=== PATIENT | male | born 1945 | race Caucasian/White ===

== ENCOUNTER 2020-02-26 11:05 | Inpatient (IN) | payer OTHER, MEDICAID ==
[~2020-02-26] VITALS: Ht 172.7 cm; Wt 125.2 kg
[~2020-02-26 11:05] MED LIST: ETOMIDATE 2MG/ML 10ML VIAL IV ONE; SUCCINYLCHOLINE CHLORIDE 200MG/10ML IV ONE
[2020-02-26] MEDS ORDERED: VANCOMYCIN 1 G PREMIX 200 ML IV ONE (11:15)
[2020-02-26] MEDS ORDERED: PROPOFOL 10MG/ML 100ML 100 ML IV ONE (11:15)
[2020-02-26] MEDS ORDERED: SODIUM CHLORIDE 0.9% 1,000 ML IV ONE ×2 (11:15)
[2020-02-26] MEDS ORDERED: ETOMIDATE 2MG/ML 10ML VIAL IV ONE (11:15)
[2020-02-26] MEDS ORDERED: PIPERACILLIN/TAZ 3.375G PREMIX 50 ML IV ONE (11:15)
[2020-02-26] MEDS ORDERED: SUCCINYLCHOLINE CHLORIDE 200MG/10ML IV ONE (11:15)
[2020-02-26 11:43] LABS: HEMATOCRIT. 37.8 % (42.0-52.0); HEMOGLOBIN. 12.9 g/dL (14.0-18.0); MEAN CORPUSCULAR HEMOGLOBIN 33.6 pg (28.0-32.0); MEAN CORPUSCULAR VOLUME 98.5 fL (80.0-94.0); MEAN PLATELET VOLUME 8.5 fl (7.4-10.4); PLATELET 279 x1000/uL (130-400); RED BLOOD CELL COUNT 3.84 mill/uL (4.7-6.1); RED CELL DISTRIBUTION WIDTH 14.9 % (11.6-14.6)
[2020-02-26 11:49] LABS: CHLORIDE 100 mEq/L (98-107)
[2020-02-26 11:51] LABS: INR 1.2
[2020-02-26 12:13] LABS: NUCLEATED RED BLOOD CELLS 1 /100 WBC; PLATELET ESTIMATE NORMAL
[2020-02-26] MEDS ORDERED: MIDAZOLAM HCL 2 MG/2 ML VIAL IV ONE (12:30)
[2020-02-26] MEDS ORDERED: NOREPINEPHRINE 32 MG in DEXT 5% WATER 218 ML IV PRN (12:45)
[2020-02-26] MEDS ORDERED: PROPOFOL 10MG/ML 100ML 100 ML IV SCH (13:45)
[2020-02-26 14:06] LABS: BG BASE EXCESS -4.9 mmol/L (-2.0-2.0); BG CARBOXYHEMOGLOBIN 1.1 % (0.5-1.5); BG DEOXYHEMOGLOBIN 7.5 % (0.0-5.0); BG FRACTION INSPIRED OXYGEN 100; BG METHEMOGLOBIN 0.2 % (0.0-1.5); BG OXYGEN SATURATION 92.4 % (92.0-98.5); BG OXYHEMOGLOBIN 91.2 % (94.0-97.0); BG PCO2 32.6 mmHg (35.0-45.0); BG PH 7.384 (7.350-7.450); BG PO2 69.2 mmHg (75.0-100.0); BG SAMPLE SITE RIGHT RADIAL; BG TOTAL HEMOGLOBIN 15.6 g/dL (12.0-18.0); BG VENT MODE VENT - PRVC
[2020-02-26 17:28] LABS: CLARITY URINE CLEAR (CLEAR); COLOR URINE YELLOW (YELLOW); KETONES URINE NEGATIVE (NEGATIVE); LEUKOCYTE ESTERASE URINE NEGATIVE (NEGATIVE); NITRITE URINE NEGATIVE (NEGATIVE); OCCULT BLOOD URINE 1+ (NEGATIVE); PH URINE 6.5 (4.5-8.0); PROTEIN URINE 2+ (NEGATIVE); SPECIFIC GRAVITY URINE 1.018 (1.005-1.030)
[2020-02-27] MEDS ORDERED: ACETAMINOPHEN 650MG SUPP PR PRN (06:00)
[2020-02-27] MEDS: DEXT 5%/0.45% NACL 1000ML 1,000 ML IV SCH (10:30)
[2020-02-27] MEDS ORDERED: DEXTROSE 50% WATER 50ML SYRINGE IV PRN (10:30)
[2020-02-27] MEDS ORDERED: ENOXAPARIN 30MG/0.3ML SYR SUBCUT SCH (11:00)
[2020-02-27] MEDS: PIPERACILLIN/TAZOBACTAM 3.375 G in DEXT 5% WATER 100 ML IV SCH ×2 (11:00→17:00)
[2020-02-27] MEDS: DEXAMETHASONE 10 MG/ML VIAL IV SCH (11:00)
[2020-02-27] MEDS ORDERED: FAMOTIDINE 20MG/2ML VIAL IV SCH (11:00)
[2020-02-27 11:24] LABS: BG BASE EXCESS 1.4 mmol/L (-2.0-2.0); BG CARBOXYHEMOGLOBIN 0.4 % (0.5-1.5); BG HCO3 ACT 29.7 mmol/L (22.0-26.0); BG METHEMOGLOBIN 0.2 % (0.0-1.5); BG OXYHEMOGLOBIN 92.4 % (94.0-97.0); BG PCO2 62.6 mmHg (35.0-45.0); BG PH 7.294 (7.350-7.450); BG PO2 70.3 mmHg (75.0-100.0); BG SAMPLE SITE RIGHT BRACHIAL; BG VENT MODE VENT- PRVC
[2020-02-27] MEDS: BLOOD SUGAR DIAGNOSTIC STRIP TEST SCH ×3 (11:30→22:27)
[2020-02-27] MEDS ORDERED: INSULIN LISPRO 100 UNITS/ML SUBCUT SCH (12:00)
[2020-02-27] MEDS: VANCOMYCIN 1250MG in DEXTROSE 5% WATER 250ML IV SCH (12:00)
[2020-02-27 14:07] LABS: BG BASE EXCESS 0.1 mmol/L (-2.0-2.0); BG CARBOXYHEMOGLOBIN 0.3 % (0.5-1.5); BG HCO3 ACT 27.3 mmol/L (22.0-26.0); BG METHEMOGLOBIN 0.2 % (0.0-1.5); BG OXYHEMOGLOBIN 93.5 % (94.0-97.0); BG PCO2 54.9 mmHg (35.0-45.0); BG PH 7.315 (7.350-7.450); BG PO2 74.9 mmHg (75.0-100.0); BG SAMPLE SITE RIGHT BRACHIAL; BG TOTAL HEMOGLOBIN 14.7 g/dL (12.0-18.0); BG VENT MODE VENT- PRVC
[2020-02-27] MEDS: PANTOPRAZOLE SODIUM 40 MG/VIAL IV SCH ×2 (14:30→22:27)
[2020-02-27] MEDS ORDERED: PROPOFOL 10MG/ML 100ML 100 ML IV PRN (14:45)
[2020-02-27] MEDS ORDERED: ONDANSETRON HCL 4MG/2ML INJ IV PRN (14:45)
[2020-02-27] MEDS ORDERED: MORPHINE SULFATE 2 MG/ML CPJ (NOT FOR IM USE) IV PRN (14:45)
[2020-02-27] MEDS: SUCRALFATE 1G TABLET NG SCH (16:30)
[2020-02-27 16:48] LABS: HEMATOCRIT. 40.4 % (42.0-52.0); HEMOGLOBIN. 13.5 g/dL (14.0-18.0); MEAN CORPUSCULAR HEMOGLOBIN 33.4 pg (28.0-32.0); MEAN PLATELET VOLUME 9.5 fl (7.4-10.4); PLATELET 167 x1000/uL (130-400); RED BLOOD CELL COUNT 4.04 mill/uL (4.7-6.1); RED CELL DISTRIBUTION WIDTH 15.2 % (11.6-14.6)
[2020-02-27 16:52] LABS: CHLORIDE 106 mEq/L (98-107)
[2020-02-27] MEDS: INSULIN LISPRO 100 UNITS/ML SUBCUT SCH ×2 (17:00→22:27)
[2020-02-27 17:34] LABS: PLATELET ESTIMATE NORMAL
[2020-02-28] MEDS: SUCRALFATE 1G TABLET NG SCH ×5 (02:08→21:00)
[2020-02-28] MEDS: DEXT 5%/0.45% NACL 1000ML 1,000 ML IV SCH ×2 (03:52→19:50)
[2020-02-28] MEDS: PIPERACILLIN/TAZOBACTAM 3.375 G in DEXT 5% WATER 100 ML IV SCH ×6 (04:44→23:00)
[2020-02-28] MEDS: VANCOMYCIN 1250MG in DEXTROSE 5% WATER 250ML IV SCH (06:03)
[2020-02-28 06:22] LABS: HEMATOCRIT. 38.4 % (42.0-52.0); MEAN CORPUSCULAR HEMOGLOBIN 33.6 pg (28.0-32.0); MEAN CORPUSCULAR VOLUME 99.7 fL (80.0-94.0); MEAN PLATELET VOLUME 10.1 fl (7.4-10.4); PLATELET 166 x1000/uL (130-400); RED BLOOD CELL COUNT 3.86 mill/uL (4.7-6.1); RED CELL DISTRIBUTION WIDTH 15.3 % (11.6-14.6)
[2020-02-28 06:26] LABS: CHLORIDE 107 mEq/L (98-107)
[2020-02-28 06:31] LABS: TOTAL IRON BINDING CAPACITY 158 ug/dL (250-450)
[2020-02-28] MEDS: BLOOD SUGAR DIAGNOSTIC STRIP TEST SCH ×4 (06:40→21:00)
[2020-02-28] MEDS: INSULIN LISPRO 100 UNITS/ML SUBCUT SCH ×6 (06:43→23:12)
[2020-02-28 07:44] LABS: FOLIC ACID (FOLATE) SERUM 14.4 ng/mL (>5.38)
[2020-02-28] MEDS: PANTOPRAZOLE SODIUM 40 MG/VIAL IV SCH ×2 (09:54→23:00)
[2020-02-28] MEDS: DEXAMETHASONE 10 MG/ML VIAL IV SCH (10:41)
[2020-02-28 10:42] LABS: BG BASE EXCESS 5.1 mmol/L (-2.0-2.0); BG CARBOXYHEMOGLOBIN 0.4 % (0.5-1.5); BG DEOXYHEMOGLOBIN 5.6 % (0.0-5.0); BG FRACTION INSPIRED OXYGEN 100; BG METHEMOGLOBIN 0.3 % (0.0-1.5); BG OXYGEN SATURATION 94.4 % (92.0-98.5); BG OXYHEMOGLOBIN 93.7 % (94.0-97.0); BG PCO2 50.2 mmHg (35.0-45.0); BG PH 7.408 (7.350-7.450); BG PO2 73.2 mmHg (75.0-100.0); BG SAMPLE SITE LEFT RADIAL; BG TOTAL HEMOGLOBIN 14.1 g/dL (12.0-18.0); BG TOTAL RESPIRATORY RATE 28 b/min; BG VENT MODE VENT - AC
[2020-02-28] MEDS: IPRATROPIUM/ALBUTEROL 0.5-3(2.5)MG/3ML NEB HHN SCH ×3 (11:00→18:00)
[2020-02-28 11:28] LABS: NUCLEATED RED BLOOD CELLS 1 /100 WBC
[2020-02-28 11:29] LABS: PLATELET ESTIMATE NORMAL
[2020-02-28] MEDS: INSULIN GLARGINE UD 100 UNITS/ML SYR SUBCUT NR ×2 (18:57→18:59)
[2020-02-28] MEDS: PROPOFOL 10MG/ML 100ML 100 ML IV PRN ×2 (20:15→23:32)
[2020-02-29] MEDS: INSULIN GLARGINE UD 100 UNITS/ML SYR SUBCUT SCH ×3 (00:25→22:21)
[2020-02-29] MEDS: VANCOMYCIN 1250MG in DEXTROSE 5% WATER 250ML IV SCH (02:00)
[2020-02-29] MEDS ORDERED: IOHEXOL-350 100 ML BOTTLE ONE (06:00)
[2020-02-29 06:31] LABS: HEMATOCRIT. 37.7 % (42.0-52.0); HEMOGLOBIN. 12.4 g/dL (14.0-18.0); MEAN CORPUSCULAR HEMOGLOBIN 32.8 pg (28.0-32.0); MEAN CORPUSCULAR VOLUME 99.5 fL (80.0-94.0); MEAN PLATELET VOLUME 10.1 fl (7.4-10.4); PLATELET 170 x1000/uL (130-400); RED BLOOD CELL COUNT 3.79 mill/uL (4.7-6.1); RED CELL DISTRIBUTION WIDTH 14.9 % (11.6-14.6)
[2020-02-29 06:43] LABS: CHLORIDE 107 mEq/L (98-107)
[2020-02-29] MEDS: PIPERACILLIN/TAZOBACTAM 3.375 G in DEXT 5% WATER 100 ML IV SCH ×3 (08:00→17:00)
[2020-02-29] MEDS: IPRATROPIUM/ALBUTEROL 0.5-3(2.5)MG/3ML NEB HHN SCH ×2 (08:22→20:44)
[2020-02-29 08:23] LABS: PLATELET ESTIMATE NORMAL
[2020-02-29] MEDS: BLOOD SUGAR DIAGNOSTIC STRIP TEST SCH ×4 (08:23→21:50)
[2020-02-29 09:46] LABS: BG BASE EXCESS 3.3 mmol/L (-2.0-2.0); BG FRACTION INSPIRED OXYGEN 100; BG HCO3 ACT 28.6 mmol/L (22.0-26.0); BG PCO2 45.7 mmHg (35.0-45.0); BG PH 7.414 (7.350-7.450); BG PO2 129.9 mmHg (75.0-100.0); BG SAMPLE SITE RIGHT RADIAL; BG TOTAL RESPIRATORY RATE 28 b/min; BG VENT MODE VENT- PRVC
[2020-02-29] MEDS: INSULIN LISPRO 100 UNITS/ML SUBCUT SCH ×4 (10:00→22:00)
[2020-02-29] MEDS: PANTOPRAZOLE SODIUM 40 MG/VIAL IV SCH ×2 (10:00→21:00)
[2020-02-29] MEDS: DEXAMETHASONE 10 MG/ML VIAL IV SCH (10:00)
[2020-02-29] MEDS: SUCRALFATE 1G TABLET NG SCH ×4 (11:09→22:20)
[2020-02-29] MEDS: ENOXAPARIN 100MG/ML SYR SUBCUT SCH ×2 (11:30→23:30)
[2020-02-29] MEDS ORDERED: PROPOFOL 10MG/ML 100ML 100 ML IV SCH (11:30)
[2020-02-29] MEDS: DEXT 5%/0.45% NACL 1000ML 1,000 ML IV SCH (15:58)
[2020-02-29] MEDS: VANCOMYCIN 1 G PREMIX 200 ML IV SCH (18:02)
[2020-03-01] MEDS: IPRATROPIUM/ALBUTEROL 0.5-3(2.5)MG/3ML NEB HHN SCH ×4 (02:50→20:31)
[2020-03-01] MEDS: DEXT 5%/0.45% NACL 1000ML 1,000 ML IV SCH ×2 (05:10→21:50)
[2020-03-01] MEDS: VANCOMYCIN 1 G PREMIX 200 ML IV SCH ×2 (06:16→18:24)
[2020-03-01 06:41] LABS: PROTHROMBIN TIME 10.9 sec (9.6-11.0)
[2020-03-01 06:42] LABS: BASOPHILS % 0.4 % (0.0-2.0); CHLORIDE 107 mEq/L (98-107); HEMATOCRIT. 36.5 % (42.0-52.0); HEMOGLOBIN. 12.1 g/dL (14.0-18.0); LYMPHOCYTES % 2.9 % (20.0-50.0); MEAN CORPUSCULAR HEMOGLOBIN 33.6 pg (28.0-32.0); MEAN CORPUSCULAR VOLUME 101.2 fL (80.0-94.0); MONOCYTES % 4.9 % (2.0-8.0); NEUTROPHILS % 91.8 % (40.0-76.0); PLATELET 132 x1000/uL (130-400); RED BLOOD CELL COUNT 3.61 mill/uL (4.7-6.1)
[2020-03-01] MEDS: BLOOD SUGAR DIAGNOSTIC STRIP TEST SCH ×4 (08:12→21:00)
[2020-03-01] MEDS: INSULIN LISPRO 100 UNITS/ML SUBCUT SCH ×4 (08:20→21:00)
[2020-03-01] MEDS: PANTOPRAZOLE SODIUM 40 MG/VIAL IV SCH ×2 (09:44→21:00)
[2020-03-01] MEDS: SUCRALFATE 1G TABLET NG SCH ×4 (09:45→22:00)
[2020-03-01] MEDS: INSULIN GLARGINE UD 100 UNITS/ML SYR SUBCUT SCH ×2 (11:01→22:00)
[2020-03-01 11:57] LABS: BG BASE EXCESS 2.4 mmol/L (-2.0-2.0); BG CARBOXYHEMOGLOBIN 0.1 % (0.5-1.5); BG DEOXYHEMOGLOBIN 2.5 % (0.0-5.0); BG METHEMOGLOBIN 0.1 % (0.0-1.5); BG OXYGEN SATURATION 97.5 % (92.0-98.5); BG OXYHEMOGLOBIN 97.3 % (94.0-97.0); BG PCO2 75.6 mmHg (35.0-45.0); BG PH 7.244 (7.350-7.450); BG PO2 113.7 mmHg (75.0-100.0); BG SAMPLE SITE RIGHT RADIAL; BG TOTAL HEMOGLOBIN 13.3 g/dL (12.0-18.0); BG VENT MODE VENT- PRVC
[2020-03-01] MEDS: DEXAMETHASONE 10 MG/ML VIAL IV SCH (12:09)
[2020-03-01] MEDS ORDERED: FENTANYL CITRATE/PF 2,500 MCG in SODIUM CHLORIDE 0.9% 200 ML IV PRN (12:15)
[2020-03-01] MEDS ORDERED: MIDAZOLAM HCL 100 MG in DEXT 5% WATER 80 ML IV PRN (12:15)
[2020-03-01] MEDS: ENOXAPARIN 100MG/ML SYR SUBCUT SCH ×2 (13:00→23:30)
[2020-03-01 15:14] LABS: BG BASE EXCESS 2.4 mmol/L (-2.0-2.0); BG CARBOXYHEMOGLOBIN 0.7 % (0.5-1.5); BG DEOXYHEMOGLOBIN 2.4 % (0.0-5.0); BG HCO3 ACT 30.8 mmol/L (22.0-26.0); BG METHEMOGLOBIN 0.3 % (0.0-1.5); BG OXYGEN SATURATION 97.6 % (92.0-98.5); BG OXYHEMOGLOBIN 96.6 % (94.0-97.0); BG PCO2 63.4 mmHg (35.0-45.0); BG PH 7.304 (7.350-7.450); BG PO2 102.9 mmHg (75.0-100.0); BG SAMPLE SITE RIGHT RADIAL; BG TOTAL HEMOGLOBIN 15.5 g/dL (12.0-18.0); BG VENT MODE VENT- PRVC
[2020-03-01] MEDS: PIPERACILLIN/TAZOBACTAM 3.375 G in DEXT 5% WATER 100 ML IV SCH ×3 (17:39→23:08)
[2020-03-02] MEDS: IPRATROPIUM/ALBUTEROL 0.5-3(2.5)MG/3ML NEB HHN SCH ×3 (00:51→14:46)
[2020-03-02 04:31] LABS: HEMATOCRIT. 39.3 % (42.0-52.0); MEAN CORPUSCULAR HEMOGLOBIN 33.6 pg (28.0-32.0); MEAN CORPUSCULAR VOLUME 101.2 fL (80.0-94.0); MEAN PLATELET VOLUME 10.2 fl (7.4-10.4); PLATELET 159 x1000/uL (130-400); RED BLOOD CELL COUNT 3.88 mill/uL (4.7-6.1); RED CELL DISTRIBUTION WIDTH 14.5 % (11.6-14.6)
[2020-03-02 04:55] LABS: VANCOMYCIN TROUGH 25.8 ug/mL (5.0-10.0)
[2020-03-02] MEDS: PIPERACILLIN/TAZOBACTAM 3.375 G in DEXT 5% WATER 100 ML IV SCH ×2 (05:30→15:18)
[2020-03-02] MEDS: SUCRALFATE 1G TABLET NG SCH ×3 (06:37→21:00)
[2020-03-02] MEDS: BLOOD SUGAR DIAGNOSTIC STRIP TEST SCH ×3 (06:53→18:17)
[2020-03-02] MEDS: VANCOMYCIN 1 G PREMIX 200 ML IV SCH (06:57)
[2020-03-02 09:11] LABS: BG BASE EXCESS -0.3 mmol/L (-2.0-2.0); BG CARBOXYHEMOGLOBIN 0.2 % (0.5-1.5); BG DEOXYHEMOGLOBIN 3.4 % (0.0-5.0); BG FRACTION INSPIRED OXYGEN 80; BG HCO3 ACT 27.1 mmol/L (22.0-26.0); BG METHEMOGLOBIN 0.3 % (0.0-1.5); BG OXYGEN SATURATION 96.6 % (92.0-98.5); BG OXYHEMOGLOBIN 96.1 % (94.0-97.0); BG PCO2 56.7 mmHg (35.0-45.0); BG PH 7.297 (7.350-7.450); BG PO2 93.3 mmHg (75.0-100.0); BG SAMPLE SITE LEFT RADIAL; BG TOTAL HEMOGLOBIN 12.9 g/dL (12.0-18.0); BG TOTAL RESPIRATORY RATE 35 b/min; BG VENT MODE PRVC
[2020-03-02] MEDS ORDERED: SODIUM POLYSTYRENE SULFONATE 15 G/60 ML BOT PO NR (09:45)
[2020-03-02] MEDS: PANTOPRAZOLE SODIUM 40 MG/VIAL IV SCH (10:03)
[2020-03-02] MEDS: INSULIN LISPRO 100 UNITS/ML SUBCUT SCH ×3 (10:03→19:04)
[2020-03-02] MEDS: DEXAMETHASONE 10 MG/ML VIAL IV SCH (11:33)
[2020-03-02] MEDS: INSULIN GLARGINE UD 100 UNITS/ML SYR SUBCUT SCH (11:33)
[2020-03-02] MEDS: ENOXAPARIN 100MG/ML SYR SUBCUT SCH (15:18)
[2020-03-02 15:26] LABS: PLATELET ESTIMATE NORMAL
[2020-03-02] MEDS: DEXT 5%/0.45% NACL 1000ML 1,000 ML IV SCH (15:48)
[2020-03-02] MEDS: METOCLOPRAMIDE HCL 10MG/2ML VIAL IV SCH (19:04)
[2020-03-03] MEDS: PIPERACILLIN/TAZOBACTAM 3.375 G in DEXT 5% WATER 100 ML IV SCH ×3 (01:06→09:31)
[2020-03-03] MEDS: INSULIN LISPRO 100 UNITS/ML SUBCUT SCH ×5 (01:07→21:00)
[2020-03-03] MEDS: PANTOPRAZOLE SODIUM 40 MG/VIAL IV SCH ×3 (01:07→22:42)
[2020-03-03] MEDS: BLOOD SUGAR DIAGNOSTIC STRIP TEST SCH ×5 (01:08→21:00)
[2020-03-03] MEDS: METOCLOPRAMIDE HCL 10MG/2ML VIAL IV SCH ×4 (01:08→17:14)
[2020-03-03] MEDS: ENOXAPARIN 100MG/ML SYR SUBCUT SCH ×2 (01:15→10:11)
[2020-03-03] MEDS: IPRATROPIUM/ALBUTEROL 0.5-3(2.5)MG/3ML NEB HHN SCH ×3 (01:53→20:19)
[2020-03-03] MEDS: INSULIN GLARGINE UD 100 UNITS/ML SYR SUBCUT SCH ×3 (02:51→22:42)
[2020-03-03] MEDS: SUCRALFATE 1G TABLET NG SCH ×5 (06:30→23:07)
[2020-03-03] MEDS: DEXAMETHASONE 4MG/ML 1ML VIAL IV SCH (08:53)
[2020-03-03] MEDS: DEXT 5%/0.45% NACL 1000ML 1,000 ML IV SCH ×2 (08:53→23:50)
[2020-03-03] MEDS ORDERED: DEXTROSE 50% WATER 50ML SYRINGE IV NR ×2 (10:30→13:00)
[2020-03-03] MEDS ORDERED: SODIUM BICARBONATE 8.4% 1 MEQ/ML 50ML SYR IV NR ×2 (10:30→13:00)
[2020-03-03] MEDS ORDERED: SODIUM POLYSTYRENE SULFONATE 15 G/60 ML BOT PO NR ×2 (10:30→15:00)
[2020-03-03] MEDS ORDERED: CALCIUM CHLORIDE 1GM/10ML SYR IV ONE (10:30)
[2020-03-03] MEDS ORDERED: INSULIN REGULAR (HUMULIN R) 300UNITS/3ML VIAL IV NR ×2 (10:30→13:00)
[2020-03-03 10:52] LABS: BG BASE EXCESS -5.4 mmol/L (-2.0-2.0); BG CARBOXYHEMOGLOBIN 0.3 % (0.5-1.5); BG DEOXYHEMOGLOBIN 1.3 % (0.0-5.0); BG FRACTION INSPIRED OXYGEN 100; BG HCO3 ACT 19.1 mmol/L (22.0-26.0); BG METHEMOGLOBIN 0.3 % (0.0-1.5); BG OXYGEN SATURATION 98.7 % (92.0-98.5); BG OXYHEMOGLOBIN 98.1 % (94.0-97.0); BG PCO2 33.6 mmHg (35.0-45.0); BG PH 7.372 (7.350-7.450); BG PO2 143.6 mmHg (75.0-100.0); BG SAMPLE SITE RIGHT RADIAL; BG TOTAL HEMOGLOBIN 10.8 g/dL (12.0-18.0); BG VENT MODE VENT - AC
[2020-03-03] MEDS ORDERED: CALCIUM CHLORIDE 1000 MG in DEXTROSE 5% WATER 100 ML IV SCH (11:00)
[2020-03-03 12:54] LABS: HEMATOCRIT. 37.8 % (42.0-52.0); HEMOGLOBIN. 12.3 g/dL (14.0-18.0); MEAN CORPUSCULAR HEMOGLOBIN 33.1 pg (28.0-32.0); MEAN CORPUSCULAR VOLUME 102.1 fL (80.0-94.0); MEAN PLATELET VOLUME 10.4 fl (7.4-10.4); PLATELET 178 x1000/uL (130-400); RED CELL DISTRIBUTION WIDTH 15.2 % (11.6-14.6)
[2020-03-03] MEDS ORDERED: HEPARIN 1000 UNITS/ML 10ML ONE (13:35)
[2020-03-03] MEDS ORDERED: CALCIUM CHLORIDE 1,000 MG in DEXT 5% WATER 90 ML IV NR (14:00)
[2020-03-03 15:56] LABS: ATYPICAL LYMPHOCYTES 1; NUCLEATED RED BLOOD CELLS 1 /100 WBC
[2020-03-03 15:57] LABS: PLATELET ESTIMATE NORMAL
[2020-03-03] MEDS: PIPERACILLIN/TAZOBACTAM 2.25 G in DEXTROSE 5% WATER 50 ML IV SCH (17:14)
[2020-03-04] MEDS: PIPERACILLIN/TAZOBACTAM 2.25 G in DEXTROSE 5% WATER 50 ML IV SCH ×3 (02:00→18:55)
[2020-03-04] MEDS: IPRATROPIUM/ALBUTEROL 0.5-3(2.5)MG/3ML NEB HHN SCH ×3 (02:57→20:50)
[2020-03-04 05:08] LABS: HEMATOCRIT 37.7 % (42.0-52.0); HEMOGLOBIN 12.8 g/dL (14.0-18.0); MEAN CORPUSCULAR HEMOGLOBIN 33.9 pg (28.0-32.0); MEAN CORPUSCULAR VOLUME 100.1 fL (80.0-94.0); PLATELET 193 x1000/uL (130-400); RED BLOOD CELL COUNT 3.76 mill/uL (4.7-6.1)
[2020-03-04] MEDS: METOCLOPRAMIDE HCL 10MG/2ML VIAL IV SCH ×4 (06:00→18:07)
[2020-03-04] MEDS: SUCRALFATE 1G TABLET NG SCH ×4 (06:30→22:07)
[2020-03-04] MEDS: BLOOD SUGAR DIAGNOSTIC STRIP TEST SCH ×4 (06:30→21:45)
[2020-03-04] MEDS: INSULIN LISPRO 100 UNITS/ML SUBCUT SCH ×4 (07:00→21:58)
[2020-03-04] MEDS: PANTOPRAZOLE SODIUM 40 MG/VIAL IV SCH ×2 (09:00→21:57)
[2020-03-04] MEDS: DEXAMETHASONE 4MG/ML 1ML VIAL IV SCH (09:00)
[2020-03-04 09:46] LABS: BG BASE EXCESS -6.2 mmol/L (-2.0-2.0); BG CARBOXYHEMOGLOBIN 0.6 % (0.5-1.5); BG FRACTION INSPIRED OXYGEN 80; BG METHEMOGLOBIN 0.1 % (0.0-1.5); BG OXYHEMOGLOBIN 96.3 % (94.0-97.0); BG PCO2 48.4 mmHg (35.0-45.0); BG PH 7.255 (7.350-7.450); BG SAMPLE SITE LEFT RADIAL; BG TOTAL HEMOGLOBIN 13.2 g/dL (12.0-18.0); BG TOTAL RESPIRATORY RATE 32 b/min; BG VENT MODE VENT- PRVC
[2020-03-04] MEDS ORDERED: ENOXAPARIN 100MG/ML SYR SUBCUT SCH (10:00)
[2020-03-04] MEDS: INSULIN GLARGINE UD 100 UNITS/ML SYR SUBCUT SCH ×2 (10:00→21:58)
[2020-03-04] MEDS ORDERED: SODIUM POLYSTYRENE SULFONATE 15 G/60 ML BOT NG NR (13:30)
[2020-03-04] MEDS: DEXT 5%/0.45% NACL 1000ML 1,000 ML IV SCH (16:30)
[2020-03-05] MEDS: METOCLOPRAMIDE HCL 10MG/2ML VIAL IV SCH ×4 (00:17→18:40)
[2020-03-05] MEDS: PIPERACILLIN/TAZOBACTAM 2.25 G in DEXTROSE 5% WATER 50 ML IV SCH ×3 (02:09→18:00)
[2020-03-05] MEDS: IPRATROPIUM/ALBUTEROL 0.5-3(2.5)MG/3ML NEB HHN SCH ×4 (02:56→20:38)
[2020-03-05] MEDS: INSULIN LISPRO 100 UNITS/ML SUBCUT SCH ×4 (06:18→21:43)
[2020-03-05] MEDS: BLOOD SUGAR DIAGNOSTIC STRIP TEST SCH ×4 (06:18→21:39)
[2020-03-05] MEDS: SUCRALFATE 1G TABLET NG SCH ×4 (06:30→21:43)
[2020-03-05 07:50] LABS: HEMATOCRIT 38.5 % (42.0-52.0); HEMOGLOBIN 12.7 g/dL (14.0-18.0); MEAN CORPUSCULAR HEMOGLOBIN 33.2 pg (28.0-32.0); MEAN CORPUSCULAR VOLUME 100.7 fL (80.0-94.0); PLATELET 183 x1000/uL (130-400); RED BLOOD CELL COUNT 3.83 mill/uL (4.7-6.1); RED CELL DISTRIBUTION WIDTH 15.2 % (11.6-14.6)
[2020-03-05 08:23] LABS: BG BASE EXCESS -6.5 mmol/L (-2.0-2.0); BG CARBOXYHEMOGLOBIN 0.3 % (0.5-1.5); BG HCO3 ACT 21.2 mmol/L (22.0-26.0); BG METHEMOGLOBIN 0.3 % (0.0-1.5); BG OXYHEMOGLOBIN 96.4 % (94.0-97.0); BG PCO2 51.3 mmHg (35.0-45.0); BG PH 7.234 (7.350-7.450); BG PO2 102.2 mmHg (75.0-100.0); BG SAMPLE SITE RIGHT RADIAL; BG TOTAL HEMOGLOBIN 13.3 g/dL (12.0-18.0); BG VENT MODE VENT- PRVC
[2020-03-05] MEDS: PANTOPRAZOLE SODIUM 40 MG/VIAL IV SCH ×2 (09:00→21:43)
[2020-03-05] MEDS: ENOXAPARIN 100MG/ML SYR SUBCUT SCH (09:00)
[2020-03-05] MEDS: DEXAMETHASONE 4MG/ML 1ML VIAL IV SCH (09:00)
[2020-03-05] MEDS ORDERED: INSULIN REGULAR (HUMULIN R) 300UNITS/3ML VIAL IV NR (10:00)
[2020-03-05] MEDS ORDERED: DEXTROSE 50% WATER 50ML SYRINGE IV NR (10:00)
[2020-03-05] MEDS ORDERED: SODIUM BICARBONATE 8.4% 1 MEQ/ML 50ML SYR IV NR (10:00)
[2020-03-05] MEDS ORDERED: CALCIUM GLUCONATE 100MG/ML 10ML VIAL IV NR (10:30)
[2020-03-05] MEDS ORDERED: SODIUM POLYSTYRENE SULFONATE 15 G/60 ML BOT PO NR (11:00)
[2020-03-05] MEDS ORDERED: SODIUM BICARBONATE 100 MEQ in DEXT 5%/0.45% NACL 1000ML 1,000 ML IV SCH (11:00)
[2020-03-06] VITALS (34 sets, daily range): BP systolic 102–165; BP diastolic 45–132
[2020-03-06] MEDS: METOCLOPRAMIDE HCL 10MG/2ML VIAL IV SCH ×5 (00:13→23:13)
[2020-03-06] MEDS: IPRATROPIUM/ALBUTEROL 0.5-3(2.5)MG/3ML NEB HHN SCH ×4 (02:26→20:26)
[2020-03-06] MEDS: PIPERACILLIN/TAZOBACTAM 2.25 G in DEXTROSE 5% WATER 50 ML IV SCH ×3 (03:23→21:45)
[2020-03-06 05:56] LABS: HEMATOCRIT 39.7 % (42.0-52.0); HEMOGLOBIN 13.3 g/dL (14.0-18.0); MEAN CORPUSCULAR HEMOGLOBIN 33.5 pg (28.0-32.0); PLATELET 205 x1000/uL (130-400); RED BLOOD CELL COUNT 3.97 mill/uL (4.7-6.1); RED CELL DISTRIBUTION WIDTH 15.5 % (11.6-14.6)
[2020-03-06] MEDS: BLOOD SUGAR DIAGNOSTIC STRIP TEST SCH ×4 (07:00→21:00)
[2020-03-06] MEDS: INSULIN LISPRO 100 UNITS/ML SUBCUT SCH ×4 (08:43→23:08)
[2020-03-06 09:11] LABS: BG CARBOXYHEMOGLOBIN 0.7 % (0.5-1.5); BG DEOXYHEMOGLOBIN 9.3 % (0.0-5.0); BG FRACTION INSPIRED OXYGEN 80; BG HCO3 ACT 20.8 mmol/L (22.0-26.0); BG METHEMOGLOBIN 0.3 % (0.0-1.5); BG OXYGEN SATURATION 90.6 % (92.0-98.5); BG OXYHEMOGLOBIN 89.7 % (94.0-97.0); BG PCO2 62.9 mmHg (35.0-45.0); BG PH 7.137 (7.350-7.450); BG PO2 71.2 mmHg (75.0-100.0); BG SAMPLE SITE RIGHT RADIAL; BG TOTAL HEMOGLOBIN 13.4 g/dL (12.0-18.0); BG VENT MODE VENT - PRVC
[2020-03-06] MEDS ORDERED: INSULIN REGULAR (HUMULIN R) 300UNITS/3ML VIAL IV ONE (09:45)
[2020-03-06] MEDS ORDERED: SODIUM BICARBONATE 8.4% 1 MEQ/ML 50ML SYR IV ONE (09:45)
[2020-03-06] MEDS ORDERED: DEXTROSE 50% WATER 50ML SYRINGE IV ONE (09:45)
[2020-03-06] MEDS ORDERED: CALCIUM GLUCONATE 1GM PREMIX 50 ML IV ONE (10:00)
[2020-03-06] MEDS ORDERED: SODIUM POLYSTYRENE SULFONATE 15 G/60 ML BOT PO NR (10:30)
[2020-03-06] MEDS: DEXAMETHASONE 4MG/ML 1ML VIAL IV SCH (11:05)
[2020-03-06] MEDS ORDERED: SODIUM BICARBONATE 8.4% MEQ/ML 50ML VIAL IV ONE ×2 (11:05→11:06)
[2020-03-06] MEDS: PANTOPRAZOLE SODIUM 40 MG/VIAL IV SCH ×2 (11:05→22:44)
[2020-03-06] MEDS: ENOXAPARIN 100MG/ML SYR SUBCUT SCH (11:06)
[2020-03-06] MEDS: SODIUM BICARBONATE 150 MEQ in DEXT 5%/0.45% NACL 1000ML 1,000 ML IV SCH (11:12)
[2020-03-06 11:25] LABS: HEPATITIS B SURFACE AB < 3.1 mIU/mL
[2020-03-06 11:36] LABS: HEPATITIS B SURFACE ANTIGEN NEGATIVE
[2020-03-06 13:08] LABS: BG BASE EXCESS -4.2 mmol/L (-2.0-2.0); BG CARBOXYHEMOGLOBIN 0.3 % (0.5-1.5); BG DEOXYHEMOGLOBIN 3.2 % (0.0-5.0); BG FRACTION INSPIRED OXYGEN 80; BG HCO3 ACT 23.3 mmol/L (22.0-26.0); BG METHEMOGLOBIN 0.2 % (0.0-1.5); BG OXYGEN SATURATION 96.8 % (92.0-98.5); BG OXYHEMOGLOBIN 96.3 % (94.0-97.0); BG PCO2 53.7 mmHg (35.0-45.0); BG PH 7.256 (7.350-7.450); BG PO2 103.9 mmHg (75.0-100.0); BG SAMPLE SITE RIGHT RADIAL; BG TOTAL HEMOGLOBIN 12.1 g/dL (12.0-18.0); BG VENT MODE VENT - PRVC
[2020-03-06] MEDS: NOREPINEPHRINE 32 MG in DEXT 5% WATER 218 ML IV PRN (15:30)
[2020-03-06] MEDS: SUCRALFATE 1G TABLET NG SCH (20:45)
[2020-03-07] VITALS (59 sets, daily range): BP systolic 103–152; BP diastolic 53–85
[2020-03-07] MEDS: IPRATROPIUM/ALBUTEROL 0.5-3(2.5)MG/3ML NEB HHN SCH ×4 (02:25→21:37)
[2020-03-07] MEDS: PIPERACILLIN/TAZOBACTAM 2.25 G in DEXTROSE 5% WATER 50 ML IV SCH ×3 (04:59→21:03)
[2020-03-07] MEDS: SODIUM BICARBONATE 150 MEQ in DEXT 5%/0.45% NACL 1000ML 1,000 ML IV SCH ×2 (04:59→21:33)
[2020-03-07] MEDS: MIDAZOLAM HCL 100 MG in DEXT 5% WATER 80 ML IV PRN (05:01)
[2020-03-07] MEDS: METOCLOPRAMIDE HCL 10MG/2ML VIAL IV SCH ×3 (06:05→16:35)
[2020-03-07] MEDS: SUCRALFATE 1G TABLET NG SCH ×4 (06:05→21:00)
[2020-03-07] MEDS: INSULIN LISPRO 100 UNITS/ML SUBCUT SCH ×4 (06:05→21:33)
[2020-03-07] MEDS: BLOOD SUGAR DIAGNOSTIC STRIP TEST SCH ×4 (06:05→21:03)
[2020-03-07 06:26] LABS: HEMATOCRIT 31.5 % (42.0-52.0); HEMOGLOBIN 10.6 g/dL (14.0-18.0); MEAN CORPUSCULAR HEMOGLOBIN 33.5 pg (28.0-32.0); MEAN CORPUSCULAR VOLUME 99.3 fL (80.0-94.0); PLATELET 129 x1000/uL (130-400); RED BLOOD CELL COUNT 3.18 mill/uL (4.7-6.1); RED CELL DISTRIBUTION WIDTH 15.4 % (11.6-14.6)
[2020-03-07 08:28] LABS: BG CARBOXYHEMOGLOBIN 0.1 % (0.5-1.5); BG DEOXYHEMOGLOBIN 9.3 % (0.0-5.0); BG HCO3 ACT 22.6 mmol/L (22.0-26.0); BG METHEMOGLOBIN 0.1 % (0.0-1.5); BG OXYGEN SATURATION 90.7 % (92.0-98.5); BG OXYHEMOGLOBIN 90.5 % (94.0-97.0); BG PCO2 42.5 mmHg (35.0-45.0); BG PH 7.344 (7.350-7.450); BG PO2 66.9 mmHg (75.0-100.0); BG SAMPLE SITE RIGHT RADIAL; BG TOTAL HEMOGLOBIN 11.7 g/dL (12.0-18.0); BG VENT MODE VENT- PRVC
[2020-03-07] MEDS: PANTOPRAZOLE SODIUM 40 MG/VIAL IV SCH ×2 (09:37→20:59)
[2020-03-07] MEDS: ENOXAPARIN 100MG/ML SYR SUBCUT SCH (09:37)
[2020-03-07] MEDS: DEXAMETHASONE 4MG/ML 1ML VIAL IV SCH (09:37)
[2020-03-07] MEDS ORDERED: INSULIN REGULAR (HUMULIN R) 300UNITS/3ML VIAL IV NR (10:45)
[2020-03-07] MEDS ORDERED: SODIUM BICARBONATE 8.4% 1 MEQ/ML 50ML SYR IV NR (10:45)
[2020-03-07] MEDS ORDERED: DEXTROSE 50% WATER 50ML SYRINGE IV NR (10:45)
[2020-03-07] MEDS ORDERED: SODIUM POLYSTYRENE SULFONATE 15 G/60 ML BOT PO NR (12:30)
[2020-03-07] MEDS ORDERED: CALCIUM GLUCONATE 1GM PREMIX 50 ML IV NR (12:30)
[2020-03-07] MEDS: FENTANYL CITRATE/PF 2,500 MCG in SODIUM CHLORIDE 0.9% 200 ML IV PRN (15:24)
[2020-03-08] VITALS (66 sets, daily range): BP systolic 95–181; BP diastolic 46–97
[2020-03-08] MEDS: IPRATROPIUM/ALBUTEROL 0.5-3(2.5)MG/3ML NEB HHN SCH ×4 (01:05→20:52)
[2020-03-08 05:20] LABS: HEMATOCRIT 32.3 % (42.0-52.0); HEMOGLOBIN 10.8 g/dL (14.0-18.0); MEAN CORPUSCULAR VOLUME 98.2 fL (80.0-94.0); PLATELET 118 x1000/uL (130-400); RED BLOOD CELL COUNT 3.28 mill/uL (4.7-6.1); RED CELL DISTRIBUTION WIDTH 15.2 % (11.6-14.6)
[2020-03-08] MEDS: BLOOD SUGAR DIAGNOSTIC STRIP TEST SCH ×4 (05:38→21:23)
[2020-03-08] MEDS: INSULIN LISPRO 100 UNITS/ML SUBCUT SCH ×4 (05:38→21:29)
[2020-03-08] MEDS: PIPERACILLIN/TAZOBACTAM 2.25 G in DEXTROSE 5% WATER 50 ML IV SCH ×3 (05:45→20:08)
[2020-03-08] MEDS: SUCRALFATE 1G TABLET NG SCH ×4 (05:46→20:08)
[2020-03-08] MEDS ORDERED: CALCIUM GLUCONATE 100MG/ML 10ML VIAL IV NR (09:00)
[2020-03-08 09:18] LABS: BG BASE EXCESS -1.5 mmol/L (-2.0-2.0); BG CARBOXYHEMOGLOBIN 0.3 % (0.5-1.5); BG DEOXYHEMOGLOBIN 5.3 % (0.0-5.0); BG FRACTION INSPIRED OXYGEN 100; BG HCO3 ACT 26.6 mmol/L (22.0-26.0); BG METHEMOGLOBIN 0.1 % (0.0-1.5); BG OXYGEN SATURATION 94.7 % (92.0-98.5); BG OXYHEMOGLOBIN 94.3 % (94.0-97.0); BG PCO2 62.3 mmHg (35.0-45.0); BG PH 7.248 (7.350-7.450); BG PO2 88.6 mmHg (75.0-100.0); BG SAMPLE SITE RIGHT RADIAL; BG TOTAL HEMOGLOBIN 10.8 g/dL (12.0-18.0); BG TOTAL RESPIRATORY RATE 34 b/min; BG VENT MODE PRVC
[2020-03-08] MEDS: NOREPINEPHRINE 32 MG in DEXT 5% WATER 218 ML IV PRN (10:33)
[2020-03-08] MEDS: ENOXAPARIN 100MG/ML SYR SUBCUT SCH (11:32)
[2020-03-08] MEDS: PANTOPRAZOLE SODIUM 40 MG/VIAL IV SCH ×2 (11:32→20:08)
[2020-03-08] MEDS: METOCLOPRAMIDE HCL 10MG/2ML VIAL IV SCH ×4 (11:33→17:25)
[2020-03-08] MEDS: DEXAMETHASONE 4MG/ML 1ML VIAL IV SCH (11:33)
[2020-03-08] MEDS: FENTANYL CITRATE/PF 2,500 MCG in SODIUM CHLORIDE 0.9% 200 ML IV PRN (12:08)
[2020-03-08 16:31] LABS: BG BASE EXCESS -2.6 mmol/L (-2.0-2.0); BG CARBOXYHEMOGLOBIN 0.3 % (0.5-1.5); BG DEOXYHEMOGLOBIN 3.1 % (0.0-5.0); BG FRACTION INSPIRED OXYGEN 100; BG HCO3 ACT 25.3 mmol/L (22.0-26.0); BG METHEMOGLOBIN 0.7 % (0.0-1.5); BG OXYGEN SATURATION 96.9 % (92.0-98.5); BG OXYHEMOGLOBIN 95.9 % (94.0-97.0); BG PCO2 59.2 mmHg (35.0-45.0); BG PH 7.249 (7.350-7.450); BG PO2 123.2 mmHg (75.0-100.0); BG SAMPLE SITE RIGHT RADIAL; BG TOTAL HEMOGLOBIN 11.6 g/dL (12.0-18.0); BG VENT MODE PRVC
[2020-03-08] MEDS: SODIUM BICARBONATE 150 MEQ in DEXT 5%/0.45% NACL 1000ML 1,000 ML IV SCH (17:15)
[2020-03-09] VITALS (96 sets, daily range): BP systolic 93–158; BP diastolic 45–83
[2020-03-09] MEDS: METOCLOPRAMIDE HCL 10MG/2ML VIAL IV SCH ×4 (00:08→17:35)
[2020-03-09] MEDS: IPRATROPIUM/ALBUTEROL 0.5-3(2.5)MG/3ML NEB HHN SCH ×4 (01:04→22:00)
[2020-03-09] MEDS: SUCRALFATE 1G TABLET NG SCH ×4 (05:58→22:16)
[2020-03-09] MEDS: FENTANYL CITRATE/PF 2,500 MCG in SODIUM CHLORIDE 0.9% 200 ML IV PRN ×2 (06:10→22:23)
[2020-03-09 06:20] LABS: HEMATOCRIT. 30.7 % (42.0-52.0); HEMOGLOBIN. 10.3 g/dL (14.0-18.0); MEAN CORPUSCULAR HEMOGLOBIN 33.3 pg (28.0-32.0); MEAN CORPUSCULAR VOLUME 99.3 fL (80.0-94.0); MEAN PLATELET VOLUME 12.1 fl (7.4-10.4); PLATELET 77 x1000/uL (130-400); RED BLOOD CELL COUNT 3.09 mill/uL (4.7-6.1); RED CELL DISTRIBUTION WIDTH 15.6 % (11.6-14.6)
[2020-03-09] MEDS: INSULIN LISPRO 100 UNITS/ML SUBCUT SCH ×4 (06:26→22:24)
[2020-03-09] MEDS: BLOOD SUGAR DIAGNOSTIC STRIP TEST SCH ×4 (06:26→21:00)
[2020-03-09 06:46] LABS: CHLORIDE 101 mEq/L (98-107)
[2020-03-09 08:02] LABS: BG BASE EXCESS 2.4 mmol/L (-2.0-2.0); BG CARBOXYHEMOGLOBIN 0.2 % (0.5-1.5); BG DEOXYHEMOGLOBIN 1.9 % (0.0-5.0); BG FRACTION INSPIRED OXYGEN 100; BG HCO3 ACT 29.4 mmol/L (22.0-26.0); BG METHEMOGLOBIN 0.2 % (0.0-1.5); BG OXYGEN SATURATION 98.1 % (92.0-98.5); BG OXYHEMOGLOBIN 97.7 % (94.0-97.0); BG PCO2 58.7 mmHg (35.0-45.0); BG PH 7.317 (7.350-7.450); BG PO2 159.9 mmHg (75.0-100.0); BG SAMPLE SITE LEFT RADIAL; BG TOTAL RESPIRATORY RATE 36 b/min; BG VENT MODE VENT- PRVC
[2020-03-09] MEDS: ENOXAPARIN 100MG/ML SYR SUBCUT SCH (09:00)
[2020-03-09] MEDS: PANTOPRAZOLE SODIUM 40 MG/VIAL IV SCH ×2 (09:40→22:16)
[2020-03-09] MEDS: DEXAMETHASONE 4MG/ML 1ML VIAL IV SCH (09:40)
[2020-03-09] MEDS: SODIUM BICARBONATE 150 MEQ in DEXT 5%/0.45% NACL 1000ML 1,000 ML IV SCH (12:43)
[2020-03-09 13:41] LABS: NUCLEATED RED BLOOD CELLS 3 /100 WBC
[2020-03-09 13:42] LABS: PLATELET ESTIMATE DECREASED
[2020-03-09] MEDS ORDERED: CALCIUM GLUCONATE 100MG/ML 10ML VIAL IV NR (15:00)
[2020-03-09] MEDS ORDERED: CALCIUM GLUCONATE 2,000 MG in DEXT 5% WATER 90 ML IV NR (17:00)
[2020-03-09] MEDS: MIDAZOLAM HCL 100 MG in DEXT 5% WATER 80 ML IV PRN (20:37)
[2020-03-10] VITALS (97 sets, daily range): BP systolic 0–139; BP diastolic -1–81
[2020-03-10] MEDS: IPRATROPIUM/ALBUTEROL 0.5-3(2.5)MG/3ML NEB HHN SCH ×4 (02:42→21:12)
[2020-03-10 05:52] LABS: HEMOGLOBIN. 9.4 g/dL (14.0-18.0); MEAN CORPUSCULAR HEMOGLOBIN 33.4 pg (28.0-32.0); MEAN CORPUSCULAR VOLUME 99.1 fL (80.0-94.0); MEAN PLATELET VOLUME 11.9 fl (7.4-10.4); RED BLOOD CELL COUNT 2.82 mill/uL (4.7-6.1); RED CELL DISTRIBUTION WIDTH 15.6 % (11.6-14.6)
[2020-03-10] MEDS: BLOOD SUGAR DIAGNOSTIC STRIP TEST SCH ×4 (06:01→21:00)
[2020-03-10] MEDS: METOCLOPRAMIDE HCL 10MG/2ML VIAL IV SCH ×4 (06:01→17:05)
[2020-03-10] MEDS: SUCRALFATE 1G TABLET NG SCH ×4 (06:01→22:29)
[2020-03-10] MEDS: INSULIN LISPRO 100 UNITS/ML SUBCUT SCH ×4 (06:02→21:00)
[2020-03-10] MEDS: DEXAMETHASONE 4MG/ML 1ML VIAL IV SCH (08:07)
[2020-03-10] MEDS: PANTOPRAZOLE SODIUM 40 MG/VIAL IV SCH ×2 (08:07→22:28)
[2020-03-10] MEDS: SODIUM BICARBONATE 150 MEQ in DEXT 5%/0.45% NACL 1000ML 1,000 ML IV SCH (08:08)
[2020-03-10 08:22] LABS: PROTHROMBIN TIME 10.9 sec (9.6-11.0)
[2020-03-10 08:35] LABS: BG BASE EXCESS 0.6 mmol/L (-2.0-2.0); BG CARBOXYHEMOGLOBIN 0.3 % (0.5-1.5); BG DEOXYHEMOGLOBIN 1.8 % (0.0-5.0); BG HCO3 ACT 27.8 mmol/L (22.0-26.0); BG METHEMOGLOBIN 0.3 % (0.0-1.5); BG OXYGEN SATURATION 98.2 % (92.0-98.5); BG OXYHEMOGLOBIN 97.6 % (94.0-97.0); BG PCO2 59.7 mmHg (35.0-45.0); BG PH 7.286 (7.350-7.450); BG PO2 154.2 mmHg (75.0-100.0); BG SAMPLE SITE RIGHT RADIAL; BG VENT MODE VENT- PRVC
[2020-03-10] MEDS ORDERED: ROCURONIUM BROMIDE 10MG/ML VIAL 5ML IV ONE (08:42)
[2020-03-10] MEDS ORDERED: EPINEPHRINE 0.1MG/ML (1:10,000) 10ML SYR ONE (08:44)
[2020-03-10] MEDS ORDERED: SODIUM CHLORIDE 0.9% 10ML VIAL ONE (08:44)
[2020-03-10] MEDS ORDERED: CEFAZOLIN SODIUM 1000MG/VIAL ONE (08:44)
[2020-03-10] MEDS ORDERED: BACITRACIN 15GM TUBE TOP ONE ×2 (08:54→10:37)
[2020-03-10] MEDS ORDERED: THROMBIN (BOVINE) 5000 UNITS/VIAL TOP ONE (08:54)
[2020-03-10] MEDS ORDERED: LIDOCAINE HCL/EPINEPHRINE 1%-EPI 1:100,000 20 ML VIAL ONE (08:54)
[2020-03-10] MEDS ORDERED: SODIUM CHLORIDE 0.9% INJ 10ML FLUSH IVF ONE (08:54)
[2020-03-10] MEDS ORDERED: BACITRACIN 50,000 UNITS/VIAL ONE (08:55)
[2020-03-10] MEDS ORDERED: LEVETIRACETAM 500 MG in SODIUM CHLORIDE 0.9% 100 ML IV SCH (10:45)
[2020-03-10] MEDS ORDERED: MORPHINE SULFATE 4 MG/ML CPJ (NOT FOR IM USE) IV PRN (10:45)
[2020-03-10] MEDS ORDERED: NICARDIPINE 100 MG in SODIUM CHLORIDE 0.9% 60 ML IV PRN (11:00)
[2020-03-10 13:18] LABS: NUCLEATED RED BLOOD CELLS 3 /100 WBC
[2020-03-10 13:19] LABS: PLATELET ESTIMATE DECREASED
[2020-03-10 13:21] LABS: PLATELET 94 x1000/uL (130-400)
[2020-03-10] MEDS ORDERED: CEFAZOLIN SODIUM 1000MG/VIAL IV SCH (14:00)
[2020-03-10] MEDS: LEVETIRACETAM 500MG PREMIX 100 ML IV SCH (14:22)
[2020-03-10] MEDS: CEFAZOLIN 1000MG PREMIX 50 ML IV SCH (14:27)
[2020-03-10] MEDS ORDERED: DOPAMINE 400MG/250ML PREMIX 250 ML IV PRN (14:45)
[2020-03-11] VITALS (107 sets, daily range): BP systolic 75–139; BP diastolic 41–69
[2020-03-11] MEDS: METOCLOPRAMIDE HCL 10MG/2ML VIAL IV SCH ×5 (00:53→23:58)
[2020-03-11] MEDS: INSULIN LISPRO 100 UNITS/ML SUBCUT SCH ×5 (00:54→21:00)
[2020-03-11] MEDS: FENTANYL CITRATE/PF 2,500 MCG in SODIUM CHLORIDE 0.9% 200 ML IV PRN (02:12)
[2020-03-11] MEDS: IPRATROPIUM/ALBUTEROL 0.5-3(2.5)MG/3ML NEB HHN SCH ×5 (02:20→20:45)
[2020-03-11] MEDS: SUCRALFATE 1G TABLET NG SCH ×4 (05:02→21:24)
[2020-03-11 05:20] LABS: HEMATOCRIT. 23.1 % (42.0-52.0); HEMOGLOBIN. 7.9 g/dL (14.0-18.0); MEAN CORPUSCULAR HEMOGLOBIN 33.2 pg (28.0-32.0); MEAN CORPUSCULAR VOLUME 97.4 fL (80.0-94.0); MEAN PLATELET VOLUME 11.5 fl (7.4-10.4); PLATELET 93 x1000/uL (130-400); RED BLOOD CELL COUNT 2.37 mill/uL (4.7-6.1); RED CELL DISTRIBUTION WIDTH 15.6 % (11.6-14.6)
[2020-03-11] MEDS: SODIUM BICARBONATE 150 MEQ in DEXT 5%/0.45% NACL 1000ML 1,000 ML IV SCH ×2 (05:30→17:57)
[2020-03-11] MEDS: BLOOD SUGAR DIAGNOSTIC STRIP TEST SCH ×4 (06:55→20:56)
[2020-03-11] MEDS ORDERED: CALCIUM GLUCONATE 1GM PREMIX 50 ML IV ONE (08:15)
[2020-03-11 10:11] LABS: NUCLEATED RED BLOOD CELLS 5 /100 WBC
[2020-03-11 10:13] LABS: PLATELET ESTIMATE SLIGHTLY DECREASED
[2020-03-11 10:39] LABS: BG BASE EXCESS 1.7 mmol/L (-2.0-2.0); BG CARBOXYHEMOGLOBIN 0.3 % (0.5-1.5); BG FRACTION INSPIRED OXYGEN 90; BG HCO3 ACT 28.8 mmol/L (22.0-26.0); BG METHEMOGLOBIN 0.1 % (0.0-1.5); BG OXYHEMOGLOBIN 91.6 % (94.0-97.0); BG PCO2 59.8 mmHg (35.0-45.0); BG PO2 74.7 mmHg (75.0-100.0); BG SAMPLE SITE RIGHT RADIAL; BG VENT MODE PRVC
[2020-03-11] MEDS: PANTOPRAZOLE SODIUM 40 MG/VIAL IV SCH ×2 (10:40→21:24)
[2020-03-11] MEDS: DEXAMETHASONE 4MG/ML 1ML VIAL IV SCH (10:40)
[2020-03-11] MEDS: CALCIUM GLUCONATE 1GM PREMIX 50 ML IV SCH ×2 (10:41→10:42)
[2020-03-11] MEDS: MIDAZOLAM HCL 100 MG in DEXT 5% WATER 80 ML IV PRN (11:32)
[2020-03-11] MEDS: LEVETIRACETAM 500MG PREMIX 100 ML IV SCH (11:52)
[2020-03-11] MEDS: CEFAZOLIN 1000MG PREMIX 50 ML IV SCH (12:10)
[2020-03-11] MEDS ORDERED: ALTEPLASE 2MG/VIAL ITC ONE (13:45)
[2020-03-11] MEDS: PHENYLEPHRINE 100 MG in DEXT 5% WATER 240 ML IV PRN (16:45)
[2020-03-12] VITALS (104 sets, daily range): BP systolic 61–128; BP diastolic 35–68
[2020-03-12] MEDS: IPRATROPIUM/ALBUTEROL 0.5-3(2.5)MG/3ML NEB HHN SCH ×4 (02:51→20:40)
[2020-03-12] MEDS: SUCRALFATE 1G TABLET NG SCH ×4 (05:54→21:59)
[2020-03-12] MEDS: BLOOD SUGAR DIAGNOSTIC STRIP TEST SCH ×4 (05:54→21:59)
[2020-03-12] MEDS: METOCLOPRAMIDE HCL 10MG/2ML VIAL IV SCH ×2 (05:54→12:09)
[2020-03-12] MEDS: INSULIN LISPRO 100 UNITS/ML SUBCUT SCH ×5 (05:55→22:01)
[2020-03-12] MEDS: FENTANYL CITRATE/PF 2,500 MCG in SODIUM CHLORIDE 0.9% 200 ML IV PRN (05:57)
[2020-03-12 06:26] LABS: HEMATOCRIT. 25.7 % (42.0-52.0); HEMOGLOBIN. 8.7 g/dL (14.0-18.0); MEAN CORPUSCULAR HEMOGLOBIN 32.5 pg (28.0-32.0); MEAN CORPUSCULAR VOLUME 96.3 fL (80.0-94.0); MEAN PLATELET VOLUME 11.1 fl (7.4-10.4); PLATELET 90 x1000/uL (130-400); RED BLOOD CELL COUNT 2.67 mill/uL (4.7-6.1); RED CELL DISTRIBUTION WIDTH 16.2 % (11.6-14.6)
[2020-03-12] MEDS: PANTOPRAZOLE SODIUM 40 MG/VIAL IV SCH ×2 (09:27→22:01)
[2020-03-12] MEDS: CEFAZOLIN 1000MG PREMIX 50 ML IV SCH (09:27)
[2020-03-12] MEDS: DEXAMETHASONE 4MG/ML 1ML VIAL IV SCH (09:27)
[2020-03-12] MEDS: LEVETIRACETAM 500MG PREMIX 100 ML IV SCH (09:40)
[2020-03-12 10:32] LABS: NUCLEATED RED BLOOD CELLS 3 /100 WBC; PLATELET ESTIMATE DECREASED
[2020-03-12] MEDS ORDERED: POTASSIUM CHLORIDE 20MEQ/PACKET NG NR (10:45)
[2020-03-12] MEDS ORDERED: SORBITOL 70% SOLN 30ML NG SCH (11:00)
[2020-03-12 11:24] LABS: BG BASE EXCESS 6.6 mmol/L (-2.0-2.0); BG CARBOXYHEMOGLOBIN 0.3 % (0.5-1.5); BG DEOXYHEMOGLOBIN 15.1 % (0.0-5.0); BG FRACTION INSPIRED OXYGEN 100; BG HCO3 ACT 32.7 mmol/L (22.0-26.0); BG METHEMOGLOBIN 0.1 % (0.0-1.5); BG OXYGEN SATURATION 84.8 % (92.0-98.5); BG OXYHEMOGLOBIN 84.5 % (94.0-97.0); BG PCO2 55.7 mmHg (35.0-45.0); BG PH 7.386 (7.350-7.450); BG PO2 53.1 mmHg (75.0-100.0); BG SAMPLE SITE RIGHT RADIAL; BG TOTAL HEMOGLOBIN 9.3 g/dL (12.0-18.0); BG VENT MODE PRVC
[2020-03-12] MEDS ORDERED: POTASSIUM CHLORIDE INJ 40 MEQ in DEXT 5% WATER 250 ML IV NR (13:00)
[2020-03-12] MEDS: PHENYLEPHRINE 100 MG in DEXT 5% WATER 240 ML IV PRN (18:54)
[2020-03-12] MEDS: SODIUM BICARBONATE 150 MEQ in DEXT 5%/0.45% NACL 1000ML 1,000 ML IV SCH (21:06)
[2020-03-13] VITALS (76 sets, daily range): BP systolic 47–161; BP diastolic 21–78
[2020-03-13] MEDS: IPRATROPIUM/ALBUTEROL 0.5-3(2.5)MG/3ML NEB HHN SCH ×3 (00:25→16:06)
[2020-03-13] MEDS: PHENYLEPHRINE 100 MG in DEXT 5% WATER 240 ML IV PRN ×3 (01:48→13:47)
[2020-03-13] MEDS: NOREPINEPHRINE 32 MG in DEXT 5% WATER 218 ML IV PRN (02:47)
[2020-03-13 05:56] LABS: HEMATOCRIT. 27.7 % (42.0-52.0); MEAN CORPUSCULAR HEMOGLOBIN 31.7 pg (28.0-32.0); MEAN CORPUSCULAR VOLUME 97.5 fL (80.0-94.0); MEAN PLATELET VOLUME 12.2 fl (7.4-10.4); PLATELET 71 x1000/uL (130-400); RED BLOOD CELL COUNT 2.84 mill/uL (4.7-6.1); RED CELL DISTRIBUTION WIDTH 16.8 % (11.6-14.6)
[2020-03-13] MEDS: SUCRALFATE 1G TABLET NG SCH ×2 (06:01→12:50)
[2020-03-13] MEDS: BLOOD SUGAR DIAGNOSTIC STRIP TEST SCH ×2 (06:01→12:14)
[2020-03-13] MEDS: INSULIN LISPRO 100 UNITS/ML SUBCUT SCH ×2 (06:01→12:50)
[2020-03-13 08:33] LABS: NUCLEATED RED BLOOD CELLS 5 /100 WBC; PLATELET ESTIMATE DECREASED
[2020-03-13 09:01] LABS: BG CARBOXYHEMOGLOBIN 0.7 % (0.5-1.5); BG DEOXYHEMOGLOBIN 7.4 % (0.0-5.0); BG HCO3 ACT 29.8 mmol/L (22.0-26.0); BG METHEMOGLOBIN 0.1 % (0.0-1.5); BG OXYGEN SATURATION 92.5 % (92.0-98.5); BG OXYHEMOGLOBIN 91.8 % (94.0-97.0); BG PCO2 51.5 mmHg (35.0-45.0); BG PO2 70.6 mmHg (75.0-100.0); BG SAMPLE SITE RIGHT RADIAL; BG TOTAL HEMOGLOBIN 8.6 g/dL (12.0-18.0); BG VENT MODE VENT- PRVC
[2020-03-13] MEDS: PANTOPRAZOLE SODIUM 40 MG/VIAL IV SCH (10:46)
[2020-03-13] MEDS: DEXAMETHASONE 4MG/ML 1ML VIAL IV SCH (10:47)
[2020-03-13] MEDS: LEVETIRACETAM 500MG PREMIX 100 ML IV SCH (10:47)
[2020-03-13] MEDS ORDERED: POTASSIUM CHLORIDE 20MEQ TABLET SR PO SCH (11:00)
[2020-03-13] MEDS ORDERED: POTASSIUM CHLORIDE 20MEQ/PACKET GT NR (11:00)
== END 2020-03-13 19:24 | disposition expired | DRG 853 ==
LOC: ER 11:23 → MICUSO 13:45
PROVIDERS: ADMIT Internal Medicine; ATTEND Internal Medicine
PROC: 5A1955Z Respiratory Ventilation, Greater than 96 Consecutive Hours (ICD-10-PCS; principal; 2020-02-26)
PROC: 30233M1 Transfusion of Nonautologous Plasma Cryoprecipitate into Peripheral Vein, Percutaneous Approach (ICD-10-PCS; 2020-03-10)
PROC: 30233R1 Transfusion of Nonautologous Platelets into Peripheral Vein, Percutaneous Approach (ICD-10-PCS; 2020-03-10)
PROC: 05HY33Z Insertion of Infusion Device into Upper Vein, Percutaneous Approach (ICD-10-PCS; 2020-03-10)
PROC: B54MZZA Ultrasonography of Right Upper Extremity Veins, Guidance (ICD-10-PCS; 2020-03-10)
PROC: 00970ZZ Drainage of Cerebral Hemisphere, Open Approach (ICD-10-PCS; 2020-03-12)
PROC: 00C00ZZ Extirpation of Matter from Brain, Open Approach (ICD-10-PCS; 2020-03-12)
PROC: 0NR00JZ Replacement of Skull with Synthetic Substitute, Open Approach (ICD-10-PCS; 2020-03-12)
PROC: 00H002Z Insertion of Monitoring Device into Brain, Open Approach (ICD-10-PCS; 2020-03-12)
PROC: 0BH18EZ Insertion of Endotracheal Airway into Trachea, Via Natural or Artificial Opening Endoscopic (ICD-10-PCS; 2020-03-12)
PROC: 4A103BD Monitoring of Intracranial Pressure, Percutaneous Approach (ICD-10-PCS; 2020-03-12)
DX: A41.89 Other specified sepsis (principal); G93.41 Metabolic encephalopathy; J96.01 Acute respiratory failure with hypoxia; I21.4 Non-ST elevation (NSTEMI) myocardial infarction; K29.61 Other gastritis with bleeding; U07.1 COVID-19; J12.82 Pneumonia due to coronavirus disease 2019; I61.1 Nontraumatic intracerebral hemorrhage in hemisphere, cortical; I26.93 Single subsegmental thrombotic pulmonary embolism without acute cor pulmonale; R65.21 Severe sepsis with septic shock; E87.1 Hypo-osmolality and hyponatremia; E87.2 Acidosis; R17 Unspecified jaundice; I82.412 Acute embolism and thrombosis of left femoral vein; N17.9 Acute kidney failure, unspecified; D64.9 Anemia, unspecified; E88.09 Other disorders of plasma-protein metabolism, not elsewhere classified; E78.00 Pure hypercholesterolemia, unspecified; E78.5 Hyperlipidemia, unspecified; I10 Essential (primary) hypertension; R74.01 Elevation of levels of liver transaminase levels; R73.9 Hyperglycemia, unspecified; E83.51 Hypocalcemia; D63.8 Anemia in other chronic diseases classified elsewhere; D69.6 Thrombocytopenia, unspecified; D75.89 Other specified diseases of blood and blood-forming organs; Z66 Do not resuscitate; E87.5 Hyperkalemia; E87.6 Hypokalemia; Z82.3 Family history of stroke; Z86.73 Personal history of transient ischemic attack (TIA), and cerebral infarction without residual deficits; Z79.899 Other long term (current) drug therapy
CPT/HCPCS: 36415; 36556; 36600; 71045; 71275; 76700; 77001; 78610; 80048; 80053; 80076; 80202; 81003; 82247; 82248; 82375; 82607; 82728; 82746; 82805; 82962; 83036; 83540; 83550; 83605; 83880; 84132; 84145; 84478; 84484; 85025; 85027; 85044; 85379; 86140; 86703; 86706; 86850; 86900; 86920; 86927; 87340; 87426; 87635; 88304; 93005; 93970; 94003; 94640; 99291; A6261; A9512; C1713; C1725; C1752; C9113; J0330; J0610; J0690; J1100; J1265; J1644; J1650; J1815; J1953; J2250; J2270; J2370; J2543; J2704; J2765; J2997; J3010; J3370; J3480; J3490; J7030; J7040; J7050; J7060; J7120; L8514; P9016; P9017; P9034; Q9967